=== PATIENT | female | born 1990 | race Caucasian/White ===

== ENCOUNTER 2020-04-26 13:06 | Emergency (ER) | payer MEDICAID ==
[~2020-04-26] VITALS: Ht 162.6 cm; Wt 57.8 kg
[~2020-04-26 13:06] MED LIST: ALBU6.7H9 INH; ALBU8.5H8 IH; ALBU8HFA PO
[2020-04-26 13:17] VITALS: BP 129/77
[2020-04-26] MEDS ORDERED: MUPI22OI30 TOP (14:52)
== END 2020-04-26 15:00 | disposition home or self-care (01) ==
LOC: ER 13:06
DX: R23.4 Changes in skin texture (principal); Z72.89 Other problems related to lifestyle; Z79.899 Other long term (current) drug therapy
CPT/HCPCS: 99283